=== PATIENT | female | born 1955 | race Caucasian/White ===

== ENCOUNTER 2022-12-07 12:18 | Emergency (ER) | payer BC, SELFPAY ==
[2022-12-07 12:25] VITALS: BP 93/55; PULSE 56; RESP 15; TEMP 36.4; O2SAT 98
--- NOTE | 2022-12-07 12:30 | DI.RAD_ITS ---
Exam(s) XR ANKLE RT COMPLETE XR FOOT RT COMPLETE EXAM: XR ANKLE RT COMPLETE CLINICAL HISTORY: fall. TECHNIQUE: 2D digital imaging was performed. Three views. COMPARISON: CR XR FOOT RT COMPLETE from 12/07/2022 FINDINGS: BONES: No acute fracture is present. No bony destructive lesion is seen. Postsurgical changes with screw in 1st metatarsal head. JOINTS: The ankle mortise is normally aligned. Mild degenerative changes talonavicular joint. SOFT TISSUE: Normal. IMPRESSION: No acute abnormality. DATA REPOSITORY: RADIATION DOSE DELIVERED:
--- OUTSIDE RECORDS SUMMARY | 2022-12-07 12:56 | XMS_ITS | Patient Health Record ---
Author Name Unknown Organization [facility] icine Address [address] [place], [place] [id number] Care Team Providers Care Sat Instructor Name Role Phone Ly HUNTER, Dr. Arcos Primary Care Provider Un available Tani Pablo Unavailable [phone] RESULTS Component Value Reference Range Notes CT Heart Reviewed date:05/24/2022 03:19:23 PM Interpretation: Performing Lab: Notes/Report: REASON FOR REFERRAL No Information SOCIAL HISTORY Sex Assigned At : Social History Observation Description Sex Assigned At Unknown Encounters Encounter Location Date Provider Diagnosis [facility] [address] [place], [place] [id number] 05/15/2022 Tani Pablo Ischemic heart disease screen Z13.6 ASSESSMENTS Encounter Date Diagnosis Assessment Notes Treatment Notes Treatment Clinical Notes 05/15/2022 Ischemic heart disease screen (ICD-10 - Z13.6) PLAN OF TREATMENT No Information
--- NOTE | 2022-12-07 13:35 | ED.GENADUL_ITS ---
Discharge Plan Disposition Patient Disposition: Home Condition: Stable Discharge Details Clinical Impression: Right ankle sprain ED Provider: Carlos Petty Home Meds and New Rx's Prescriptions: Continued metoprolol succinate 25 mg tablet extended release 24 hr 25 mg PO DAILY Patient Comments: Pt takes 12.5 mg Discharge Instructions Instructions: Ankle Sprain (ED) Additional Instructions: Please take acetaminophen (tylenol) - 650mg every 6 hours by mouth as needed for pain. Please use ankle stabilizer and crutches. Please contact your primary care physician to arrange follow-up. Return to the ER immediately for any worsening or new concerning symptoms. If pain persist or is not healing as expected, please follow-up with an clinical product specialist. Discharge Data Discharge Date/Time-TO BE ENTERED AT DEPARTURE: 12/07/22 14:20 Medical Decision Making 66-year-old female here with inversion injury to right ankle. Considered fracture versus sprain. X-ray of the right foot and ankle were reviewed and read by radiology: No acute abnormality. Suspect ATFL sprain. Patient be placed in an ankle stabilizer and crutches provided. Usual customary discharge instructions were reviewed. HPI General Mode of arrival: ambulatory . Date/Time Provider Initiated Documentation: 12/07/22 12:40 . Limitations to Documentation: no limitations . Information obtained by: patient . HPI Narrative: 66-year-old female presents with chief complaint of right ankle/foot injury that occurred just prior to arrival. Patient notes she was playing pickle ball on a hardwood floor and fell and inverted her ankle. She has pain lateral ankle/proximal foot. No associated numbness or tingling. No other injury. Related Data Home Medications Medication Instructions Recorded Confirmed metoprolol succinate 25 mg 25 mg PO DAILY 12/07/22 12/07/22 tablet,extended release 24 hr Allergies Allergy/AdvReac Type Severity Reaction Status Date / Time codeine Allergy Mild Nausea Unverified 12/07/22 12:31 latex Allergy Skin Rash Unverified 12/07/22 12:31 General Stated Complaint: Orthopedic JOHN: 4 Review of Systems Musculoskeletal Musculoskeletal: Reports as per HPI PFSH All Active Problems (Updated 12/07/22 @ 13:41 by Carlos Petty MD) Right ankle sprain (Acute) Social History Smoking/Tobacco Use Status: Never Smoking risk assessment performed?: Yes Alcohol Intake: current Alcohol type: wine Drug use: Never Substance use type: does not use Housing: house Exam Extrem Right lower extremity: ankle Details: tenderness Location: of the anterior talofibular ligament and no edema and foot Details: normal capillary refill, toes with normal ROM and motor-sensory exam Details: light-touch normal; no tenderness Other: Neurovascular intact distally Course Vital Signs Vital signs: Vital Signs Temperature 36.4 C L 12/07/22 12:25 Pulse 56 L 12/07/22 12:25 Respiratory Rate 15 12/07/22 12:25 Blood Pressure 93/55 L 12/07/22 12:25 Pulse Oximetry 98 12/07/22 12:25 Temperature 36.4 C L 12/07/22 12:25 Pulse 56 L 12/07/22 12:25 Respiratory Rate 15 12/07/22 12:25 Respiratory Effort Normal 12/07/22 12:29 Blood Pressure 93/55 L 12/07/22 12:25 Blood Pressure Position Sitting 12/07/22 12:25 Pulse Oximetry 98 12/07/22 12:25 Oxygen Delivery Method Room Air 12/07/22 12:25 Oxygen Flow Rate 0 12/07/22 12:25 Pain Level 5 12/07/22 12:29 PAWSS Have you Been Recently Intoxicated or Drunk Within the Last 30 days?: No Have you Ever Experienced Previous Episodes of Alcohol Withdrawal?: No Have you ever Experienced Withdrawal Seizures?: No Have you ever Experienced Delirium Tremens(DT)s?: No Have you ever undergone Alcohol Rehabilitation Treatment (i.e, inpt ot outpatient treatment programs)?: No Have you ever Experienced Blackouts?: No Have you ever Combined Alcohol with other Downers within the last 90 days?: No Have you ever Combined Alcohol with any other Substance of Abuse during the last 90 days?: No Result: 0
[2022-12-07] MEDS: Acetaminophen 325 MG TAB 650 MG PO (13:58)
--- NOTE | 2022-12-10 08:39 | NUR.NOTE ---
Accessed Pt chart to obtain information for the [facility] document.
== END 2022-12-07 14:20 | disposition home or self-care (01) ==
PROVIDERS: Emergency Provider Student in an Organized Health Care Education/Training Program
DX: M25.571 Pain in right ankle and joints of right foot (principal); S93.401A Sprain of unspecified ligament of right ankle, initial encounter; W01.0XXA Fall on same level from slipping, tripping and stumbling without subsequent striking against object, initial encounter; Y93.59 Activity, other involving other sports and athletics played individually
CPT/HCPCS: 99283; 73610; 73630